=== PATIENT | female | born 1965 | race Caucasian/White ===

== ENCOUNTER 2022-12-03 17:31 | Inpatient (IN) | payer SELFPAY ==
[~2022-12-03 17:31] MED LIST: Iopamidol 370 76% 100 ML VIAL ONE
[2022-12-03] MEDS ORDERED: ALTEPLASE 50 MG/50 ML VIAL ONE (18:32)
[2022-12-03] MEDS ORDERED: NOREPINEPHRINE 8 MG/250 ML-D5W 250 ML ONE (18:39)
[2022-12-03] MEDS ORDERED: Heparin 10,000 UNITS/ 10 ML VIAL ONE (18:46)
[2022-12-03 18:57] LABS: #Lymphocytes 1.4 thou/uL (1.20-3.40); #Neutrophils 12.3 thou/uL (1.40-6.50); %Basophils 0.1 % (0.0-1.0); %Eosinophils 0.3 % (0.0-10.0); %Lymphocytes 9.2 % (21.0-51.0); %Monocytes 6.6 % (0.0-10.0); %Neutrophils 83.8 % (42.0-75.0); Hemoglobin 12.4 g/dL (12.0-16.0); Mean Corpuscular HGB CONC 31.9 g/dL (32.0-36.0); Mean Corpuscular Volume 84.6 fl (78.0-98.0); Mean Platelet Volume 8.3 fL (7.4-10.4); Platelet Count 283 10x3/uL (130-400); RBC Distribution Width 13.7 % (11.5-14.5); White Blood Cell (WBC) Count 14.7 10x3/uL (4.8-10.8)
[2022-12-03] MEDS ORDERED: Heparin 25,000 units/D5W 500 ML ONE ×2 (18:58→18:59)
[2022-12-03] MEDS ORDERED: Tenecteplase 50 MG ONE (19:00)
[2022-12-03] MEDS ORDERED: Heparin 25,000 units/D5W 500 ML IVPB SCH (19:15)
[2022-12-03] MEDS ORDERED: Heparin 10,000 UNITS/ 10 ML VIAL SLOW IVP SCH (19:15)
[2022-12-03 19:20] LABS: Albumin 2.1 g/dL (3.5-5.0)
[2022-12-03 19:21] LABS: Chloride 105 mmol/L (98-107); Potassium 5.1 mmol/L (3.5-5.1); Sodium 133 mmol/L (136-145)
[2022-12-03 19:22] LABS: Calcium 8.1 mg/dL (7.8-10.44); Glucose 127 mg/dL (70-105)
[2022-12-03 19:22] LABS: INR-International Normal Ratio 1.3; PTT 24.5 sec (22.9-36.1); Prothrombin Time 16.3 sec (12.0-14.7)
[2022-12-03 19:23] LABS: Globulin 3.1 g/dL (2.4-3.5); Protein, Total 5.2 g/dL (6.0-8.3)
[2022-12-03 19:24] LABS: Bilirubin, Total 0.9 mg/dL (0.2-1.2); Carbon Dioxide 12 mmol/L (22-29)
[2022-12-03 19:25] LABS: Alkaline Phosphatase 86 U/L (40-110)
[2022-12-03 19:26] LABS: Calc. Creatinine Clearance 0 mL/min (70-130); Estimated GFR 37
[2022-12-03 19:27] LABS: BUN (Urea Nitrogen) 14 mg/dL (9.8-20.1)
[2022-12-03 19:28] LABS: ALT (SGPT) 18 U/L (8-55); AST (SGOT) 32 U/L (5-34)
[2022-12-03 19:32] LABS: SARS-CoV-2 NAA Rapid Test Not Detected (NotDetected)
[2022-12-03 19:37] LABS: Anion Gap 21 mmol/L (10-20)
[2022-12-03 19:51] LABS: CKMB 0.7 ng/mL (0-6.6)
[2022-12-03] MEDS ORDERED: EPINEPHrine 1 MG/ML VIAL ONE ×4 (21:25→21:30)
[2022-12-03 22:37] LABS: Troponin I 0.358 ng/mL (< 0.028)
== END 2022-12-03 22:09 | disposition expired | DRG 208 ==
LOC: ERS 17:31 → SUATTDRO 17:31 → ERHOLD 18:34
PROVIDERS: ADMIT Family Medicine; ATTEND Internal Medicine
PROC: 5A12012 Performance of Cardiac Output, Single, Manual (ICD-10-PCS; principal; 2022-12-03)
PROC: 5A1935Z Respiratory Ventilation, Less than 24 Consecutive Hours (ICD-10-PCS; 2022-12-03)
PROC: 0BH17EZ Insertion of Endotracheal Airway into Trachea, Via Natural or Artificial Opening (ICD-10-PCS; 2022-12-03)
PROC: 3E033XZ Introduction of Vasopressor into Peripheral Vein, Percutaneous Approach (ICD-10-PCS; 2022-12-03)
PROC: 3E03317 Introduction of Other Thrombolytic into Peripheral Vein, Percutaneous Approach (ICD-10-PCS; 2022-12-03)
DX: I26.92 Saddle embolus of pulmonary artery without acute cor pulmonale (principal); J96.90 Respiratory failure, unspecified, unspecified whether with hypoxia or hypercapnia; R57.8 Other shock; I95.9 Hypotension, unspecified; I46.9 Cardiac arrest, cause unspecified; Z66 Do not resuscitate; Z20.822 Contact with and (suspected) exposure to COVID-19; Z82.49 Family history of ischemic heart disease and other diseases of the circulatory system; Z82.3 Family history of stroke; Z90.89 Acquired absence of other organs; Z98.890 Other specified postprocedural states
CPT/HCPCS: 71045; 71275; 80053; 82553; 83880; 84484; 85025; 85610; 85730; 86850; 86900; 86901; 93005; 94002; J0171; J1644; J2997; J3101; Q9967